=== PATIENT | female | born 1970 | race Caucasian/White ===

== ENCOUNTER → 2024-07-13 15:34 | Outpatient (REF) | payer OTHER, SELFPAY | LOC: HWWDC 15:34 | PROVIDERS: ATTENDING PHYSICIAN Nurse Practitioner Family; FAMILY PHYSICIAN Family Medicine | DX: Z12.31 Encounter for screening mammogram for malignant neoplasm of breast (principal) | CPT/HCPCS: 77063; 77067 ==

== ENCOUNTER → 2024-07-21 08:36 | Outpatient (REF) | payer OTHER, SELFPAY | LOC: WDC 08:36 | PROVIDERS: ATTENDING PHYSICIAN Nurse Practitioner Family; FAMILY PHYSICIAN Family Medicine | DX: R92.8 Other abnormal and inconclusive findings on diagnostic imaging of breast (principal) | CPT/HCPCS: 76642 ==

== ENCOUNTER 2024-12-09 06:39 | Day surgery (SDC) | payer OTHER, SELFPAY | END 2024-12-09 14:53 | disposition home or self-care (01) | LOC: GI 06:39 | PROVIDERS: ATTENDING PHYSICIAN Internal Medicine Gastroenterology; FAMILY PHYSICIAN Family Medicine | DX: Z12.11 Encounter for screening for malignant neoplasm of colon (principal); K57.30 Diverticulosis of large intestine without perforation or abscess without bleeding; K64.0 First degree hemorrhoids; K22.89 Other specified disease of esophagus; K31.7 Polyp of stomach and duodenum; K31.89 Other diseases of stomach and duodenum; R12 Heartburn | CPT/HCPCS: 43239; G0121; 88305; 88342 ==

== ENCOUNTER → 2025-01-10 15:02 | Outpatient (REF) | payer OTHER, SELFPAY | LOC: RCS 15:02 | PROVIDERS: ATTENDING PHYSICIAN Internal Medicine; FAMILY PHYSICIAN Family Medicine | DX: R07.89 Other chest pain (principal); R74.8 Abnormal levels of other serum enzymes; Z82.49 Family history of ischemic heart disease and other diseases of the circulatory system | CPT/HCPCS: 93017 ==

== ENCOUNTER → 2025-04-27 14:07 | Outpatient (REF) | payer OTHER, SELFPAY | LOC: RAD 14:07 | PROVIDERS: ATTENDING PHYSICIAN Family Medicine | DX: M54.50 Low back pain, unspecified (principal) | CPT/HCPCS: 76700 ==

== ENCOUNTER 2025-06-16 06:17 | Day surgery (SDC) | payer OTHER, SELFPAY ==
[2025-05-29 15:07] LABS: ALT (SGPT) 13 U/L (0-35); AST (SGOT) 17 U/L (14-36); Albumin 4.0 g/dl (3.5-5.0); Alkaline Phosphatase 53 U/L (38-126); Total Protein 6.5 g/dl (6.3-8.2)
[2025-06-16] VITALS (11 sets, daily range): BP systolic 134–149; BP diastolic 77–106; BMI 25.3
[2025-06-16] MEDS: HEPARIN 5000 UNITS SC (13:01)
[2025-06-16] MEDS: TYLENOL 1000 MG PO (13:01)
[2025-06-16] MEDS: IC GREEN 2.5 MG IV (13:03)
[2025-06-16] MEDS: NORMOSOL-R/PLASMALYTE-A 1000 IV (13:15)
--- NOTE | 2025-06-16 14:52 | OR.RPT ---
Operative Report
Operative Report
Primary Surgeon: Boris
Assisting: Mateo BAE, Abigail HERBERT
Pre-op Diagnosis: Biliary colic
Post-op Diagnosis: Same
Procedure Performed: Robot assisted laparoscopic cholecystectomy with intraoperative near infra-red imaging of major extrahepatic bile ducts
Anesthesia Type: GETA
Specimen / Cultures: Gallbladder
Estimated Blood Loss: 25cc
Complications: Superficial veress injury to left lobe of liver
Operative Findings: Softly distended gallbladder with mild wall thickening
DOS: 06/16/25
Indications: This 55F developed right upper quadrant/epigastric pain and on workup was found to have cholelithiasis, with normal liver enzymes and normal sized ducts. Laparoscopic cholecystectomy with robotic assist.
Description of procedure: The patient was placed on the operating table in the supine position. General anesthesia was induced. A time-out was completed verifying correct patient, procedure, site, positioning, and special equipment prior to
beginning this procedure. An orogastric tube was placed. The abdomen was prepped and draped in the usual sterile fashion. A stab incision was made in left upper quadrant and the Veress needle was inserted. Proper position was confirmed by aspiration
and saline meniscus test. The abdomen was insufflated with carbon dioxide to a pressure of 12 mmHg. The patient tolerated insufflation well.
An 8mm optical trocar was then inserted in the left upper quadrant. The laparoscope was inserted and the abdomen inspected. A superficial injury to te left lobe of the liver was identified with a slow ooze. Additional 8mm trocars were then inserted
in the following locations: above the umbilicus, right mid clavicular line at the level of the umbilicus and 6cm lateral to this on the right. The abdomen was inspected and no abnormalities were found. The needle puncture of the liver was cauterized
with the hook and was hemostatic. The table was placed in the reverse Trendelenburg position with the right side up. Filmy omental adhesions to the abdominal wall were taken down carefully. The dome of the gallbladder was grasped with an atraumatic
grasper and retracted over the dome of the liver. The infundibulum was grasped with an atraumatic grasper and retracted toward the right lower quadrant. This maneuver exposed Calot�s triangle. The cystic duct and cystic artery were dissected out
until the only two structures entering the gallbladder were these two structures. The common duct was protected. ICG was used to visualize the cystic and common ducts. The common duct was protected.
The cystic artery was controlled with bipolar and divided. The cystic duct was doubly clipped and divided. The gallbladder was dissected free from the liver bed. The posterior plane was fibrotic and the wall was mildly thickened. Hemostasis was
assured and the gallbladder and contained stones were removed using an endoscopic retrieval bag placed through the umbilical port. The gallbladder was passed off the table as a specimen. There was no evidence of bleeding from the gallbladder fossa
or cystic artery or leakage of the bile from the cystic duct stump. The umbilical trocar site was closed at the fascial level laparoscopically with 2-0 PDS. Secondary trocars were removed under direct vision and noted to be hemostatic. The
laparoscope was withdrawn and the umbilical trocar removed. The abdomen was allowed to collapse. The skin was closed with subcuticular sutures of 4-0 monocryl and topical skin adhesive. The orogastric tube was removed.
The patient tolerated the procedure well and was taken to the postanesthesia care unit in stable condition.
The assistance of Mateo BAE was required due to the complexity of the procedure. During the procedure she assisted with retraction, resection, and closure of the wound.
[2025-06-16] MEDS: DILAUDID 0.25 MG IV ×2 (15:41→15:55)
[2025-06-16] MEDS: ZOFRAN 4 MG IV (16:09)
== END 2025-06-16 18:00 | disposition home or self-care (01) ==
LOC: SDS 06:17
PROVIDERS: ATTENDING PHYSICIAN Surgery; FAMILY PHYSICIAN Family Medicine
DX: K80.10 Calculus of gallbladder with chronic cholecystitis without obstruction (principal); K91.81 Other intraoperative complications of digestive system
CPT/HCPCS: 47562; 36415; 80076; 88304; 93005